=== PATIENT | female | born 2000 | race Caucasian/White ===

== ENCOUNTER 2024-04-15 02:42 | Emergency (ER) | payer OTHER ==
[2024-04-15 02:51] VITALS: BP 111/78; PULSE 71; RESP 18; TEMP 97.6; BMI 31.1
[2024-04-15 03:32] LABS: HCG,QUALITATIVE URINE Negative
[2024-04-15 03:33] LABS: EPI CELLS 10 /uL (0-25.1); HYALINE CASTS 3 /uL (0-3.1); PH,URINE 5.5 (5.0-8.0); URINE APPEARANCE CLOUDY; URINE BACTERIA 333 /uL (0-1359); URINE BILIRUBIN NEGATIVE (NEGATIVE); URINE COLOR YELLOW; URINE GLUCOSE (UA) NEGATIVE (NEGATIVE); URINE KETONE TRACE (NEGATIVE); URINE LEUK ESTERASE 2+ (NEGATIVE); URINE NITRITE NEGATIVE (NEGATIVE); URINE PROTEIN NEGATIVE (NEGATIVE); URINE RBC 343 /uL (0-23.9); URINE UROBILINOGEN 0.2 mg/dL (0.2-1.0); URINE WBC 991 /uL (0-25.8)
[2024-04-15] MEDS ORDERED: NITROFURANTOIN MACROCRYSTAL 50 MG CAPSULE (FP) ONE (03:55)
[2024-04-15] MEDS: NITROFURANTOIN MONOHYD/M-CRYST 100 MG CAPSULE PO ONE (03:59)
== END 2024-04-15 04:10 | disposition home or self-care (01) ==
LOC: JER 02:42
DX: N39.0 Urinary tract infection, site not specified (principal); R30.0 Dysuria; R35.0 Frequency of micturition; R10.30 Lower abdominal pain, unspecified
CPT/HCPCS: 36415; 81003; 84703; 87086; 87491; 87591; 99283-25